=== PATIENT | female | born 1980 | race Caucasian/White ===

== ENCOUNTER 2017-03-21 20:37 | Emergency (ER) | payer SELFPAY ==
[2017-03-21 20:51] VITALS: BP 112/72; PULSE 67; TEMP 98.6; BMI 26.2
[2017-03-21] MEDS ORDERED: KETOROLAC TROMETHAMINE 30 MG/1 ML VIAL IM ONE (21:12)
[2017-03-21] MEDS ORDERED: SODIUM CHLORIDE 500 ML IV STA (21:12)
--- NOTE | 2017-03-21 21:27 | PDOC ---
History of Present Illness - General Chief Complaint: Pain Stated Complaint: PAIN, ACUTE Time Seen by Provider: 03/21/17 21:06 History Source: Patient Exam Limitations: No Limitations - History of Present Illness Travel History: No Initial Comments: 03/21/17 21:14 36yo Female patient with no significant past medical history presents to ED c/o RLQ/ Right Suprapubic pain with intermittent right flank discomfort which began last night and "slightly worsened." Patient reports no OTC medication use for pain. Associated frequent urination. Denies burning, Urgency, Pain, Discharge, Odor. Patient denies any other complaints at this time. Timing/Duration: reports: getting worse Quality: reports: moderate Abdominal Pain Onset Location: reports: RLQ, suprapubic (right) Pain Radiation: reports: flank Activities at Onset: reports: exertion Treatment Prior to Arrive: improves with: analgesics Aggravating Factors: improves with: None. worse with: Defecation, Eating, Emotional upset, Exertion, Capron, Movement, Voiding, Change in position Alleviating Factors: worse with: None, Belching, Shallow Breathing, Defecation, Eating, Holding Breath, Passing Gas, Change in Position, Rest, Voiding, Vomiting Past History - Travel Traveled outside of the country in the last 30 days: No Close contact w/someone who was outside of country & ill: No - Past Medical History Allergies/Adverse Reactions: Allergies Allergy/AdvReac Type Severity Reaction Status Date / Time No Known Allergies Allergy Verified 03/21/17 20:48 Home Medications: Ambulatory Orders Cephalexin Monohydrate [Keflex -] 500 mg PO BID #14 capsule 03/22/17 Other medical history: Pt denies - Surgical History Abdominal Surgery: Yes (Tubal ligation) - Psycho/Social/Smoking Cessation Hx Suicidal Ideation: No Smoking History: Never smoked Have you smoked in the past 12 months: No Information on smoking cessation initiated: No Hx Alcohol Use: No Drug/Substance Use Hx: No Substance Use Type: None Abd/GI Specific PMHX - Complaint Specific PMHX Colitis: No Diverticulitis: No Gall Bladder Disease: No GERD: No Hepatitis: No Irritable Bowel Synd (IBS): No Pancreatitis: No GI Ulcer Disease: No Review of Systems - Review of Systems Able to Perform ROS?: Yes Is the patient limited French proficient: No Constitutional: No: Chills, Fever ABD/GI: Yes: Abdominal cramping. No: Constipated, Diarrhea, Nausea, Poor Appetite, Poor Fluid Intake, Rectal Bleeding, Vomiting : Yes: Frequency. No: Burning, Discharge, Flank Pain, Hematuria, Urgency Musculoskeletal: Yes: Back Pain All Other Systems: Reviewed and Negative *Physical Exam - Vital Signs Last Vital Signs Temp Pulse Resp BP Pulse Ox 98.6 F 67 18 112/72 100 03/21/17 20:49 03/21/17 20:49 03/21/17 20:49 03/21/17 20:49 03/21/17 20:49 - Physical Exam General Appearance: Yes: Nourished, Appropriately Dressed. No: Apparent Distress, Mild Distress, Moderate Distress, Severe Distress Neck: positive: Trachea midline, Normal Thyroid, Supple. negative: Rigid, Decreased range of motion, Stridor, Lymphadenopathy (R), Lymphadenopathy (L), Rigidity, Tender lateral, Tender midline Respiratory/Chest: positive: Lungs Clear, Normal Breath Sounds. negative: Chest Tender, Respiratory Distress, Accessory Muscle Use, Labored Respiration, Rapid RR, Rhonchi, Stridor, Wheezing Cardiovascular: positive: Regular Rhythm, Regular Rate. negative: Tachycardia Gastrointestinal/Abdominal: positive: Normal Bowel Sounds, Tender, Soft, Distended, Rebound, Tenderness (Right suprapubic region/RLQ tenderness.). negative: Guarding Musculoskeletal: positive: Normal Inspection. negative: CVA Tenderness Extremity: positive: Normal Capillary Refill, Normal Range of Motion. negative : Pedal Edema, Swelling, Calf Tenderness Integumentary: positive: Normal Color, Dry, Warm Neurologic: positive: grab setter II-XII NML intact, Fully Oriented, Alert, Normal Mood/ Affect, Normal Response, Motor Strength 5/5 ED Treatment Course - LABORATORY CBC & Chemistry Diagram: 03/21/17 21:30 03/21/17 21:30 - RADIOLOGY Radiology Studies Ordered: Category Date Time Status TRANSVAGINAL ULTRASOUND US [US] Stat Ultrasound 03/21/17 21:12 Ordered *DC/Admit/Observation/Transfer Diagnosis at time of Disposition: Urinary tract infection Qualifiers: Urinary tract infection type: urethritis Qualified Code(s): N34.2 - Other urethritis - Discharge Dispostion Disposition: HOME Condition at time of disposition: Stable Admit: No - Prescriptions Prescriptions: Cephalexin Monohydrate [Keflex -] 500 mg PO BID #14 capsule - Referrals Referrals: Carlos Mata MD [Staff Physician] - - Patient Instructions Printed Discharge Instructions: DI for Urinary Tract Infection (UTI) Additional Instructions: FOLLOW UP WITH YOUR PRIMARY CARE PROVIDER THIS WEEK. CALL TO SCHEDULE APPOINTMENT. FOLLOW UP WITH DR. MATA (UROLOGY). TAKE MEDICATIONS PRESCRIBED. DRINK PLENTY FLUIDS. RETURN IF SYMPTOMS WORSEN OR ANY CONCERNS FOR FURTHER EVALUATION. Print Language: UGANDAN - Post Discharge Activity Work/School Note: Back to Work
[2017-03-21] MEDS ORDERED: KETOROLAC TROMETHAMINE 30 MG/1 ML VIAL ONE (21:40)
[2017-03-21 22:07] LABS: BASOPHIL 0.7 % (0-2.0); EOSINOPHIL 3.7 % (0-4.5); MCH 29.3 pg (25.7-33.7); MCHC 33.5 g/dl (32.0-36.0); MEAN CELL VOLUME 87.6 fl (80-96); MEAN PLT VOLUME 10.9 fl (7.5-11.1); NEUTROPHILS 63.2 % (42.8-82.8); PLATELET COUNT 209 K/MM3 (134-434); RDW 14.2 % (11.6-15.6); WHITE BLOOD COUNT 9.2 K/mm3 (4.0-10.0)
[2017-03-21 22:20] LABS: PH,URINE 7.5 (5.0-8.0); URINE APPEARANCE CLEAR; URINE BILIRUBIN NEGATIVE (NEGATIVE); URINE COLOR LT. YELLOW; URINE GLUCOSE (UA) NEGATIVE (NEGATIVE); URINE KETONE NEGATIVE (NEGATIVE); URINE LEUK ESTERASE NEGATIVE (NEGATIVE); URINE NITRITE NEGATIVE (NEGATIVE); URINE PROTEIN NEGATIVE (NEGATIVE); URINE UROBILINOGEN 0.2 E.U/dl E.U./dl (0.2-1.0)
[2017-03-21 22:30] LABS: ALBUMIN 3.9 g/dl (3.4-5.0); ALK PHOS 71 U/L (45-117); ANION GAP 7 (8-16); BILIRUBIN,TOTAL 0.2 mg/dL (0.2-1.0); CALCIUM 9.2 mg/dL (8.5-10.1); CO2 27 mmol/L (21-32); CREATININE 0.7 mg/dL (0.55-1.02); GLUCOSE,RANDOM 112 mg/dL (74-106); SGOT/AST 17 U/L (15-37); SGPT/ALT 17 U/L (12-78); TOT PROT 7.2 g/dl (6.4-8.2)
[2017-03-21 22:57] LABS: URINE BLOOD 1+ (NEGATIVE)
[2017-03-21 23:25] LABS: URINE MUCUS RARE; URINE RBC 6 /hpf (0-3); URINE WBC 16 /hpf (3-5)
[2017-03-22] MEDS ORDERED: PHENAZOPYRIDINE HCL 100 MG TABLET (FP) PO ONE (01:06)
[2017-03-22] MEDS ORDERED: CEPHALEXIN MONOHYDRATE 500 MG CAPSULE (UD) PO ONE (01:06)
[2017-03-22] MEDS ORDERED: PHENAZOPYRIDINE HCL 100 MG TABLET (FP) ONE (01:10)
[2017-03-22] MEDS ORDERED: CEPHALEXIN MONOHYDRATE 250 MG CAPSULE (FP) ONE (01:11)
== END 2017-03-22 01:18 | disposition home or self-care (01) ==
LOC: JER 20:37
PROC: 3E0337Z Introduction of Electrolytic and Water Balance Substance into Peripheral Vein, Percutaneous Approach (ICD-10-PCS; principal; 2017-03-21)
PROC: 3E0233Z Introduction of Anti-inflammatory into Muscle, Percutaneous Approach (ICD-10-PCS; 2017-03-21)
DX: N34.2 Other urethritis (principal)
CPT/HCPCS: 36415; 74177-TC; 76830-TC; 80053; 81003; 81015; 84703; 85025; 87086; 87186; 99283-25

== ENCOUNTER 2019-03-06 10:51 | Emergency (ER) | payer OTHER ==
[2019-03-06 10:58] VITALS: TEMP 98.3; BMI 27.1
[2019-03-06 11:17] LABS: EPI CELLS 0.8 /HPF (0-5/HPF); HYALINE CASTS 1 /lpf (0-8); PH,URINE 8.5 (5.0-8.0); URINE APPEARANCE CLEAR; URINE BACTERIA 13.9 /hpf (NEGATIVE); URINE BILIRUBIN NEGATIVE (NEGATIVE); URINE COLOR YELLOW; URINE GLUCOSE (UA) NEGATIVE (NEGATIVE); URINE KETONE NEGATIVE (NEGATIVE); URINE LEUK ESTERASE NEGATIVE (NEGATIVE); URINE NITRITE NEGATIVE (NEGATIVE); URINE PROTEIN NEGATIVE (NEGATIVE); URINE RBC 1 /hpf (0-4); URINE UROBILINOGEN 0.2 mg/dL (0.2-1.0); URINE WBC 0 /hpf (0-5)
[2019-03-06 11:18] LABS: HCG,QUALITATIVE URINE Negative
--- NOTE | 2019-03-06 11:33 | PDOC ---
History of Present Illness - General Chief Complaint: Pain Stated Complaint: LWR BACK PAIN Time Seen by Provider: 03/06/19 11:32 History Source: Patient Exam Limitations: No Limitations Past History - Travel Traveled outside of the country in the last 30 days: No Close contact w/someone who was outside of country & ill: No - Past Medical History Allergies/Adverse Reactions: Allergies Allergy/AdvReac Type Severity Reaction Status Date / Time No Known Allergies Allergy Verified 03/06/19 10:54 Home Medications: Ambulatory Orders Cyclobenzaprine HCl [Flexeril -] 10 mg PO HS #10 tablet 03/06/19 Ibuprofen 600 mg PO Q6H #30 tablet 03/06/19 COPD: No - Surgical History Abdominal Surgery: Yes (Tubal ligation) - Suicide/Smoking/Psychosocial Hx Smoking History: Never smoked Have you smoked in the past 12 months: No Hx Alcohol Use: No Drug/Substance Use Hx: No Substance Use Type: None Review of Systems - Review of Systems Able to Perform ROS?: Yes Comments:: 03/06/19 13:20 CONSTITUTIONAL: Absent: fever, chills, diaphoresis, generalized weakness, malaise, loss of appetite HEENT: Absent: rhinorrhea, nasal congestion, throat pain, throat swelling, difficulty swallowing, mouth swelling, ear pain, eye pain, visual Changes CARDIOVASCULAR: Absent: chest pain, loss of consciousness, palpitations, irregular heart rate, peripheral edema RESPIRATORY: Absent: cough, shortness of breath, dyspnea with exertion, orthopnea, wheezing, stridor, hemoptysis GASTROINTESTINAL: Absent: abdominal pain, abdominal distension, nausea, vomiting, diarrhea, constipation, melena, hematochezia GENITOURINARY: Present: R flank pain Absent: dysuria, frequency, urgency, hesitancy, hematuria , genital pain MUSCULOSKELETAL: Absent: myalgia, arthralgia, joint swelling SKIN: Absent: rash, itching, pallor HEMATOLOGIC/IMMUNOLOGIC: Absent: easy bleeding, easy bruising, lymphadenopathy, frequent infections ENDOCRINE: Absent: unexplained weight gain, unexplained weight loss, heat intolerance, cold intolerance NEUROLOGIC: Absent: headache, focal weakness or paresthesias, dizziness, unsteady gait, seizure, mental status changes, bladder or bowel incontinence PSYCHIATRIC: Absent: anxiety, depression, suicidal or homicidal ideation, hallucinations. Is the patient limited Puerto Rican proficient: No *Physical Exam - Vital Signs Last Vital Signs Temp Pulse Resp BP Pulse Ox 98.3 F 63 16 116/56 L 100 03/06/19 10:56 03/06/19 10:56 03/06/19 10:56 03/06/19 10:56 03/06/19 10:56 - Physical Exam Comments: 03/06/19 13:21 GENERAL: Well developed, well nourished. Awake and alert. No acute distress. HEENT: Normocephalic, atraumatic. PERRLA, EOMI. No conjunctival pallor. Sclera are non- icteric. Moist mucous membranes. Oropharynx is clear. NECK: Supple. Full ROM. No JVD. Carotid pulses 2+ and symmetric, without bruits. No thyromegaly. No lymphadenopathy. CARDIOVASCULAR: Regular rate and rhythm. No murmurs, rubs, or gallops. Distal pulses are 2+ and symmetric. PULMONARY: No evidence of respiratory distress. Lungs clear to auscultation bilaterally. No wheezing, rales or rhonchi. ABDOMINAL: TTP of the RUQ with light and deep palpation. Soft. Non-distended. No rebound or guarding. No organomegaly. Normoactive bowel sounds. MUSCULOSKELETAL TTP of the R parapspinous muscles from L-L4. Normal range of motion at all joints. No bony deformities or tenderness. No CVA tenderness. EXTREMITIES: No cyanosis. No clubbing. No edema. No calf tenderness. SKIN: Warm and dry. Normal capillary refill. No rashes. No jaundice. NEUROLOGICAL: Alert, awake, appropriate. Cranial nerves 2-12 intact. No deficits to light touch and temperature in face, upper extremities and lower extremities. No motor deficits in the in face, upper extremities and lower extremities. Normoreflexic in the upper and lower extremities. Normal speech. Toes are down- going bilaterally. Gait is normal without ataxia. PSYCHIATRIC: Cooperative. Good eye contact. Appropriate mood and affect. ED Treatment Course - LABORATORY CBC & Chemistry Diagram: 03/06/19 12:00 03/06/19 12:00 - ADDITIONAL ORDERS Additional order review: Laboratory Results 03/06/19 10:58 Urine Color Yellow Urine Appearance Clear Urine pH 8.5 H Ur Specific [place] 1.013 Urine Protein Negative Urine Glucose (UA) Negative Urine Ketones Negative Urine Blood 1+ H Urine Nitrite Negative Urine Bilirubin Negative Urine Urobilinogen 0.2 Ur Leukocyte Esterase Negative Urine WBC (Auto) 0 Urine RBC (Auto) 1 Urine Casts (Auto) 1 U Epithel Cells (Auto) 0.8 Urine Bacteria (Auto) 13.9 Urine HCG, Qual Negative Medical Decision Making - Medical Decision Making 03/06/19 13:23 Patient is a 38-year-old female no past medical history who presents to the ER today with rightsided flank pain/low back pain for 2 months. She states that the pain started gradually and got worse over the past two months. The patient states that she cannot lay on that side d/t pain. The pain is worse with movement. 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 She denies fevers, chills, dysuria, hematuria, frequency, urgency, saddle aneshtesia, bladder/bowel incontinence, nausea and vomiting A/P: Low back pain/right upper quadrant pain On exam patient with right-sided flank pain and right upper quadrant pain. Positive Hearn sign. Negative CVA tenderness. Patient states her pain is worse in the morning, muscular versus gallbladder? Basic labs, urine, right upper quadrant ultrasound, Tylenol Reevaluate 03/06/19 16:55 Labs are grossly normal except for mildly elevated liver enzymes Pain resolved with Tylenol Urine with 1+ blood, however, pt is currently on her menstrual. US gallbladder shows no evidence of laly. Suspect MSK strain DC home with PCP follow up I discussed the physical exam findings, ancillary test results and final diagnoses with the patient. I answered all of the patient's questions. The patient was satisfied with the care received and felt comfortable with the discharge plan and treatment plan. The Patient agrees to follow up with the primary care physician/specialist within 24-72 hours. Return precautions were given. *DC/Admit/Observation/Transfer Diagnosis at time of Disposition: Flank pain - Discharge Dispostion Disposition: HOME Condition at time of disposition: Stable Decision to Admit order: No - Prescriptions Prescriptions: Cyclobenzaprine HCl [Flexeril -] 10 mg PO HS #10 tablet Ibuprofen 600 mg PO Q6H #30 tablet - Referrals Referrals: Gerardo Araiza MD [Staff Physician] - - Patient Instructions Printed Discharge Instructions: DI for Flank Pain Additional Instructions: You were evaluated for your flank (low back) pain today Your blood work and urine were normal Your ultrasound did not show any gall stones Please take the Motrin and Flexeril as prescribed; do not drink or drive after taking the flexeril as it may make you sleepy Follow up with your primary care doctor. A referral has been provided to you Return to the ER for fever, vomiting, worsening pain despite treatment, pain when you pee, or if you have any changes in your symptoms - Post Discharge Activity Forms/Work/School Notes: Back to Work
[2019-03-06] MEDS ORDERED: ACETAMINOPHEN 325 MG TABLET (FP) PO ONE (11:42)
[2019-03-06] MEDS ORDERED: ACETAMINOPHEN 325 MG TABLET (FP) ONE (11:52)
[2019-03-06 12:11] LABS: BASO % 0.8 % (0-2.0); EOS % 4.4 % (0-4.5); HEMATOCRIT 35.2 % (32.4-45.2); HEMOGLOBIN 11.6 GM/dL (10.7-15.3); LYMPH % 31.4 % (8-40); MCH 27.9 pg (25.7-33.7); MCHC 32.9 g/dl (32.0-36.0); MEAN CELL VOLUME 84.9 fl (80-96); MEAN PLT VOLUME 10.3 fl (7.5-11.1); MONO % 7.7 % (3.8-10.2); NEUT % 55.7 % (42.8-82.8); PLATELET COUNT 263 K/MM3 (134-434); RBC 4.14 M/mm3 (3.60-5.2); WHITE BLOOD COUNT 4.5 K/mm3 (4.0-10.0)
[2019-03-06 12:19] LABS: PROTHROMBIN TIME (PATIENT) 11.8 SEC (9.7-13.0)
[2019-03-06 12:46] LABS: ALBUMIN 4.1 g/dl (3.4-5.0); BILIRUBIN,TOTAL 0.7 mg/dL (0.2-1); BLOOD UREA NITROGEN 14.1 mg/dL (7-18); CALCIUM 8.9 mg/dL (8.5-10.1); CREATININE 0.7 mg/dL (0.55-1.3); POTASSIUM 3.8 mmol/L (3.5-5.1); TOT PROT 7.5 g/dl (6.4-8.2)
[2019-03-06 15:31] VITALS: BP 121/62; PULSE 70
== END 2019-03-06 15:31 | disposition home or self-care (01) ==
LOC: JER 10:51
DX: R10.31 Right lower quadrant pain (principal)
CPT/HCPCS: 36415; 76705-TC; 80053; 81003; 84703; 85025; 85610; 87086; 99283-25

== ENCOUNTER 2020-09-06 21:57 | Emergency (ER) | payer OTHER ==
[2020-09-06 22:05] VITALS: BP 118/78; PULSE 85; TEMP 97.8; BMI 28.3
[2020-09-06] MEDS ORDERED: DIPHTH,PERTUSS(ACELL),TET 0.5 ML DISP.SYRIN IM ONE ×2 (22:32→22:33)
== END 2020-09-06 23:29 | disposition home or self-care (01) ==
LOC: JERFT 21:57
PROC: 0HQLXZZ Repair Left Lower Leg Skin, External Approach (ICD-10-PCS; principal; 2020-09-06)
DX: S81.812A Laceration without foreign body, left lower leg, initial encounter (principal); W26.0XXA Contact with knife, initial encounter
CPT/HCPCS: 90715; 99282-25

== ENCOUNTER 2020-09-14 21:47 | Emergency (ER) | payer OTHER ==
[2020-09-14 22:03] VITALS: BP 131/81; PULSE 68; TEMP 97.8; BMI 28.0
--- NOTE | 2020-09-14 22:19 | PDOC ---
History of Present Illness - General Chief Complaint: Pain Stated Complaint: L FOOT PAIN Time Seen by Provider: 09/14/20 22:19 - History of Present Illness Initial Comments: 40 09/14/20 22:19 Past History - Medical History Allergies/Adverse Reactions: Allergies Allergy/AdvReac Type Severity Reaction Status Date / Time No Known Allergies Allergy Verified 09/14/20 22:03 Home Medications: Ambulatory Orders Cyclobenzaprine HCl [Flexeril -] 10 mg PO HS #10 tablet 03/06/19 Ibuprofen 600 mg PO Q6H #30 tablet 03/06/19 COPD: No - Surgical History Abdominal Surgery: Yes (Tubal ligation) - Reproductive History Is Patient Now?: No - Psycho-Social/Smoking History Smoking History: Never smoked Have you smoked in the past 12 months: No *Physical Exam - Vital Signs Last Vital Signs Temp Pulse Resp BP Pulse Ox 97.8 F 68 18 131/81 99 09/14/20 22:01 09/14/20 22:01 09/14/20 22:01 09/14/20 22:01 09/14/20 22:01
--- NOTE | 2020-09-14 22:39 | PDOC ---
Attending Attestation - Resident Resident Name: Nat Acevedo - ED Attending Attestation I have performed the following: I have examined & evaluated the patient, The case was reviewed & discussed with the resident, I agree w/resident's findings & plan - HPI HPI: 09/14/20 23:20 see resident hpi - Physicial Exam PE: 09/14/20 23:20 see resident exam - Medical Decision Making 09/14/20 23:21 40-year-old female status post laceration to the left lateral ankle with gluing and Steri-Strips complaining of increasing pain and swelling in the area X-ray shows no obvious bony abnormality Will DC with clindamycin, 48-hour wound check Discharge - Discharge Information Problems reviewed: Yes Clinical Impression/Diagnosis: Laceration of ankle - Follow up/Referral - Patient Discharge Instructions - Post Discharge Activity
--- OUTSIDE RECORDS SUMMARY | 2020-09-14 23:01 | XMS ---
:1980 Author Organization [facility] Support Name Relationship Address Phone SE Unavailable Unavailable Unavailable MARYANN CARLOS PARTNER [address] [place] [address] MARYANN CARLOS Unavailable [address] [place] [address] Re-disclosure Warning The records that you are about to access may contain information from federally- assisted alcohol or drug abuse programs. If such information is present, then the following federally mandated warning applies: This information has been disclosed to you from records protected by federal confidentiality rules (42 CFR part 2). The federal rules prohibit you from making any further disclosure of this information unless further disclosure is expressly permitted by the written consent of the person to whom it pertains or as otherwise permitted by 42 CFR part 2. A general authorization for the release of medical or other information is NOT sufficient for this purpose. The Federal rules restrict any use of the information to criminally investigate or prosecute any alcohol or drug abuse patient.The records that you are about to access may contain highly sensitive health information, the redisclosure of which is protected by Article 27-F of the [facility] Public Health law. If you continue you may haveaccess to information: Regarding HIV / AIDS; Provided by facilities licensed or operated by the [facility] Office of Mental Health; or Provided by the [facility] Office for People With Developmental Disabilities. If such information is present, then the following [facility] mandated warning applies: This information has been disclosed to you from confidential records which are protected by state law. State law prohibits you from making any further disclosure of this information without the specific written consent of the person to whom it pertains, or as otherwise permitted by law. Any unauthorized further disclosure in violation of state law may result in a fine or assisted sentence or both. A general authorization for the release of medical or other information is NOT sufficient authorization for further disclosure. Results ID Date Data Source [id number] 06/25/2020 12:00:00 AM EDT [facility] Name Value Range Interpretation Code Description Data Delores rce(s) Supporting Document(s ) 2019-nCoV [facility] RNA XXX NANCY+probe- Imp This lab was ordered by JAYME CLINTON [id number] and reported by [employer] Insurance Providers Payer name Policy type / Policy ID Covered Covered green party's Policy Plan Coverage type green party ID relationship to [employer] Information [employer]ner
[2020-09-14] MEDS ORDERED: CLINDAMYCIN HCL 300 MG CAPSULE PO ONE (23:25)
--- NOTE | 2020-09-14 23:32 | PDOC ---
History of Present Illness - General Chief Complaint: Pain Stated Complaint: L FOOT PAIN Time Seen by Provider: 09/14/20 22:19 - History of Present Illness Initial Comments: 09/14/20 23:32 HPI: 40 y/po F with no pmh presenting with left lateral maleoulus wound concern for infection following a laceration. Patient was here 1 week ago after she dropped a knife that landed on her foot. She was given a tetanus shot and then derma bonded with steri strips and DCd home. Today she is here for erythema around the wound site, edema, and increased pain. Patient denies fever, chills, night sweats, TIWARI, vision change, chest pain, pal pitations, SOB, cough, leg swelling, abdominal pain, nausea, vomiting, diarrhea, constipation, dysuria, hematuria, BPR, lightheadedness, weakness, sensory changes. PMHx: as noted above ROS: as noted SHx: Denies tobacco use; no alcohol use; no rec drugs Allergies: NKDA ROS: GENERAL/CONSTITUTIONAL: No fever or chills. No weakness. HEAD, EYES, EARS, NOSE AND THROAT: No change in vision. No ear pain or discharge. No sore throat. CARDIOVASCULAR: No chest pain or shortness of breath RESPIRATORY: No cough, wheezing, or hemoptysis. GASTROINTESTINAL: No nausea, vomiting, diarrhea or constipation. GENITOURINARY: No dysuria, frequency, or change in urination. MUSCULOSKELETAL: No joint or muscle swelling or pain. No neck or back pain. SKIN: No rash NEUROLOGIC: No headache, vertigo, loss of consciousness, or change in strength/sensation. ENDOCRINE: No increased thirst. No abnormal weight change HEMATOLOGIC/LYMPHATIC: No anemia, easy bleeding, or history of blood clots. ALLERGIC/IMMUNOLOGIC: No hives or skin allergy. PE: GENERAL: Awake, alert, and fully oriented, no acute distress HEAD: No signs of trauma, normocephalic, atraumatic EYES: EOMI, sclera anicteric, conjunctiva clear ENT: Auricles normal inspection, hearing grossly normal, nares patent, oropharynx clear without exudates. Moist mucosa NECK: Normal ROM, no lymphadenopathy LUNGS: No increased work of breathing, symmetrical chest rise, clear to auscultation bilaterally, no wheezes, crackles or rhonchi HEART: Regular rate, regular rhythm, normal S1 and S2, no murmur, peripheral pulses 2+ and equal bilaterally. ABDOMEN: Soft, nondistended, nontender. No guarding, no rebound. No masses. No CVAT MUSCULOSKELETAL: FROM NEUROLOGICAL: Cranial nerves II through XII grossly intact. Normal speech, stable gait, no focal sensorimotor deficits SKIN: Warm, Dry, normal turgor, no rashes or lesions noted 09/15/20 07:55 Past History - Medical History Allergies/Adverse Reactions: Allergies Allergy/AdvReac Type Severity Reaction Status Date / Time No Known Allergies Allergy Verified 09/14/20 22:03 Home Medications: Ambulatory Orders Cyclobenzaprine HCl [Flexeril -] 10 mg PO HS #10 tablet 03/06/19 Ibuprofen 600 mg PO Q6H #30 tablet 03/06/19 Clindamycin [Cleocin -] 450 mg PO TID 7 Days #63 capsule 09/14/20 COPD: No - Surgical History Abdominal Surgery: Yes (Tubal ligation) - Reproductive History Is Patient Now?: No - Psycho-Social/Smoking History Smoking History: Never smoked Have you smoked in the past 12 months: No *Physical Exam - Vital Signs Last Vital Signs Temp Pulse Resp BP Pulse Ox 97.8 F 68 18 131/81 99 09/14/20 22:01 09/14/20 22:01 09/14/20 22:01 09/14/20 22:01 09/14/20 22:01 ED Treatment Course - RADIOLOGY Radiology Studies Ordered: Category Date Time Status ANKLE & FOOT-LEFT* [RAD] Stat Radiology 09/14/20 22:38 Taken Discharge - Discharge Information Problems reviewed: Yes Clinical Impression/Diagnosis: Laceration of ankle, Cellulitis Condition: Stable Disposition: HOME - Additional Discharge Information Prescriptions: Clindamycin [Cleocin -] 450 mg PO TID 7 Days #63 capsule - Follow up/Referral - Patient Discharge Instructions Patient Printed Discharge Instructions: DI for Cellulitis -- Adult Additional Instructions: Additional Instructions: Please return to the emergency department with any new or worsening symptoms or concerns including fever, worsening pain, pus drainage. Please follow up with the ER in 48 hours so we may re-evaluate the wound Please take the antibiotic clindamycin 450mg three times a day for 7 days You may take tylenol for pain control; follow the package instructions - Post Discharge Activity
[2020-09-14] MEDS ORDERED: CLINDAMYCIN HCL 150 MG CAPSULE (FP) ONE (23:49)
== END 2020-09-15 00:12 | disposition home or self-care (01) ==
LOC: JER 21:47
DX: S91.012A Laceration without foreign body, left ankle, initial encounter (principal); L03.116 Cellulitis of left lower limb
CPT/HCPCS: 73610-TC-LT-FY; 73630-TC-LT; 99284-25

== ENCOUNTER 2020-09-16 13:06 | Emergency (ER) | payer OTHER ==
[2020-09-16 13:29] VITALS: BP 120/73; PULSE 68; TEMP 98.2; BMI 26.6
== END 2020-09-16 15:08 | disposition home or self-care (01) ==
LOC: JER 13:06
DX: Z48.00 Encounter for change or removal of nonsurgical wound dressing (principal)
CPT/HCPCS: 99281-25

== ENCOUNTER 2023-05-13 09:49 | Emergency (ER) | payer OTHER ==
[2023-05-13 09:57] VITALS: BP 106/61; PULSE 56; RESP 18; TEMP 98.8; BMI 23.1
[2023-05-13] MEDS ORDERED: ACETAMINOPHEN 1000 MG/100 ML BAG IVPB ONE (10:27)
[2023-05-13] MEDS ORDERED: ACETAMINOPHEN INJECTION 100 ML IVPB ONE (10:31)
[2023-05-13 10:46] LABS: BASO % 0.6 % (0-2.0); EOS % 2.6 % (0-4.5); HEMATOCRIT 34.1 % (32.4-45.2); HEMOGLOBIN 11.5 GM/dL (10.7-15.3); LYMPH % 15.4 % (8-40); MCH 29.3 pg (25.7-33.7); MCHC 33.7 g/dl (32.0-36.0); MEAN CELL VOLUME 86.9 fl (80-96); MONO % 9.2 % (3.8-10.2); NEUT % 72.2 % (42.8-82.8); PLATELET COUNT 199 10^3/uL (134-434); RBC 3.93 M/mm3 (3.60-5.2); RDW 13.5 % (11.6-15.6); WHITE BLOOD COUNT 8.1 K/mm3 (4.0-10.0)
[2023-05-13 10:46] LABS: PH,URINE 8.5 (5.0-8.0); URINE APPEARANCE CLEAR; URINE BILIRUBIN NEGATIVE (NEGATIVE); URINE COLOR YELLOW; URINE GLUCOSE (UA) NEGATIVE (NEGATIVE); URINE KETONE NEGATIVE (NEGATIVE); URINE LEUK ESTERASE NEGATIVE (NEGATIVE); URINE NITRITE NEGATIVE (NEGATIVE); URINE PROTEIN NEGATIVE (NEGATIVE); URINE UROBILINOGEN 0.2 mg/dL (0.2-1.0)
[2023-05-13 10:51] LABS: HCG,QUALITATIVE URINE Negative
[2023-05-13 11:16] LABS: POTASSIUM 4.2 mmol/L (3.5-5.1)
[2023-05-13 11:19] LABS: ALBUMIN 3.7 g/dl (3.4-5.0)
[2023-05-13 11:22] LABS: CREATININE 0.7 mg/dL (0.55-1.3)
[2023-05-13 11:23] LABS: BILIRUBIN,TOTAL 0.6 mg/dL (0.2-1)
== END 2023-05-13 14:47 | disposition home or self-care (01) ==
LOC: JER 09:49
PROC: 3E033NZ Introduction of Analgesics, Hypnotics, Sedatives into Peripheral Vein, Percutaneous Approach (ICD-10-PCS; principal; 2023-05-13)
DX: R10.30 Lower abdominal pain, unspecified (principal); R35.0 Frequency of micturition; R39.15 Urgency of urination
CPT/HCPCS: 36415; 74177-TC; 80053; 81003; 84703; 85025; 87086; 99285-25; Q9967